=== PATIENT | female | born 1970 | race Caucasian/White ===

== ENCOUNTER 2020-01-30 11:06 | Emergency (ER) | payer OTHER ==
[2020-01-30] MEDS ORDERED: Bupivacaine 0.5% 10 ML SDV INJECT ONE (11:27)
--- NOTE | 2020-01-30 11:32 | EDM.PDOC ---
ED HPI GENERAL MEDICAL PROBLEM - General Chief Complaint: Laceration Stated Complaint: LT THUMB LAC Time Seen by Provider: 01/30/20 11:27 Source of Information: Reports: Patient, Family (friend) History Limitations: Reports: No Limitations - History of Present Illness INITIAL COMMENTS - FREE TEXT/NARRATIVE: 50-year-old female presents to the ED with a laceration cross the volar aspect of the mid left thumb. Laceration appears to go across the PIP joint. She has full sensation to the tip of the finger. She appears to have full range of motion although it is painful. Last tetanus toxoid was greater than 5 years ago. Injury occurred approximately 1 hour prior to arrival in the ED. Injury occurred with the hook- knife blade. Patient is right-hand dominant. Onset: Today, Sudden Onset Date: 01/30/20 Onset Time: 10:30 Duration: Minutes: Location: Reports: Upper Extremity, Left (Left volar thumb.) Quality: Reports: Burning, Stabbing Severity: Moderate Improves with: Reports: Rest Worsens with: Reports: Movement Context: Denies: Activity, Exercise, Lifting, Trauma, Other Associated Symptoms: Reports: No Other Symptoms Treatments CLIENT SERVER DEVELOPER: Reports: Other (see below) (None.) Left Finger-Thumb Pain Score (Numeric/FACES): 3 - Related Data Allergies Allergy/AdvReac Type Severity Reaction Status Date / Time No Known Allergies Allergy Verified 01/30/20 11:33 Home Meds: Home Meds FLUoxetine HCl [Prozac] 20 mg PO DAILY 01/30/20 [History] buPROPion [Wellbutrin SR] 150 mg PO DAILY 01/30/20 [History] Past Medical History Psychiatric History: Reports: Anxiety, Depression Social & Family History - Living Situation & Occupation Occupation: Employed (Works as a physiotherapist.) ED ROS GENERAL - Review of Systems Review Of Systems: See Below Constitutional: Denies: Fever, Chills, Malaise, Weakness, Fatigue HEENT: Reports: No Symptoms Respiratory: Reports: No Symptoms Cardiovascular: Reports: No Symptoms Endocrine: Reports: No Symptoms GI/Abdominal: Reports: No Symptoms : Reports: No Symptoms Musculoskeletal: Reports: No Symptoms Skin: Reports: Other (Laceration volar aspect left thumb) Neurological: Reports: No Symptoms Psychiatric: Reports: No Symptoms Hematologic/Lymphatic: Reports: No Symptoms ED EXAM, SKIN/RASH Exam: See Below Exam Limited By: No Limitations General Appearance: Alert, WD/WN, Anxious (Very anxious.), Moderate Distress Extremities: Other (1.5 cm laceration volar aspect left thumb that crosses the DIP joint. Range of motion appears to be close to normal. She is able to resist forced extension of a flexed thumb at the DIP joint. Suggesting the tendon is intact. She has normal sensation to the tip of the thumb.) Psychiatric: Anxious Skin: Warm, Dry, Intact, Normal Color, No Rash Location, Skin: Lower Extremity, Left (Left volar thumb.) ED SKIN PROCEDURES - Laceration/Wound Repair Left Lower Digit - 1st (Thumb) Appearance: Subcutaneous Anesthetic Type: Local Local Anesthesia - Bupivicaine (Marcaine): 0.5% Plain Local Anesthetic Volume: Other (9) Skin Prep: Chlorhexidine (Hibiciens) Exploration/Debridement/Repair: Wound Explored Closed with: Sutures Lac/Wound length In cm: 2.5 Suture Size: 3-0 # of Sutures: 8 Suture Type: Nylon, Interrupted, Simple Suture Size: 3-0 Course - Vital Signs Last Recorded V/S: Last Vital Signs Temp 36.8 C 01/30/20 11:26 Pulse 74 01/30/20 11:26 Resp 20 01/30/20 11:26 BP 136/76 01/30/20 11:26 Pulse Ox 98 01/30/20 11:26 - Orders/Labs/Meds Meds: Medications Discontinued Medications Generic Name Dose Route Start Last Admin Trade Name Freq PRN Reason Stop Dose Admin Bupivacaine HCl 10 ml 01/30/20 11:27 Sensorcaine-Mpf 0.5% INJECT 01/30/20 11:28 ONETIME ONE - Radiology Interpretation Free Text/Narrative:: 50-year-old female presents to the ED with a laceration to the volar aspect of her left thumb across the PIP joint. This occurred approximately an hour prior to arrival in the ED. She was using a hook knife blade to open up a bale of fencing wire and slipped with a resultant laceration across the volar aspect of her left thumb. No other injuries are apparent. She believes her tetanus toxoid is up-to-date somewhere between 10 and 5 years ago. It is a low risk wound as the fencing material was brand-new and is a brand-new blade. Wound will require laceration repair. Plan wound soak for 5 minutes then anesthetized with bupivacaine 0.5% and closed with 3-0 nylon. - Re-Assessments/Exams Free Text/Narrative Re-Assessment/Exam: 01/30/20 12:25 laceration repaired under local anesthetic using 4-0 nylon times 8 sutures in total. Wound was explored and no evidence of tendon injury identified. She will daily cleanse the wound with soap and water and then apply topical antibiotic ointment such as bacitracin or Polysporin and cover with a bandage to keep clean. Sutures will need to be removed in 10 days time Departure - Departure Time of Disposition: 12:06 Disposition: Home, Self-Care 01 Condition: Fair Clinical Impression: Laceration of left thumb with complication Qualifiers: Encounter type: initial encounter Qualified Code(s): S61.012A - Laceration without foreign body of left thumb without damage to nail, initial encounter - Discharge Information *PRESCRIPTION DRUG MONITORING PROGRAM REVIEWED*: Not Applicable Instructions: Laceration Care, Adult Referrals: Ching Bhat MD [Primary Care Provider] - Forms: ED Department Discharge Additional Instructions: Evaluation in the emergency room this morning in regard laceration to the volar aspect as well as the radial aspect of the dorsal thumb on the left side. This occurred from slipping with a sharp pointed knife. Tendon appears to be intact. Sensation normal. Wound was cleansed debrided and then sutured under local anesthetic using 0.5% bupivacaine times 8 sutures. Initial dressing is to remain in place until tomorrow night. Wound may then be cleansed daily with soap and water. Showering is okay. The wound should not be soaked under water however. Apply topical antibiotic such as bacitracin or Polysporin once daily to the wound and cover with a bandage to keep clean. Sutures will need to be removed in 10 days time. Follow-up with personal care physician if any signs of infection occur such as increased redness, swelling, obvious pus. Return 600 mg as necessary 6 hours needed for pain relief. Sepsis Event Note (ED) - Focused Exam Vital Signs: Vital Signs Temp Pulse Resp BP Pulse Ox 01/30/20 11:26 36.8 C 74 20 136/76 98
[2020-01-30] MEDS ORDERED: Diphtheria,Pertussis(Acell),Tetanus Vaccine 0.5 ML Syringe IM ONE (12:25)
== END 2020-01-30 12:45 | disposition home or self-care (01) ==
LOC: JD.ED 11:06
DX: S61.012A Laceration without foreign body of left thumb without damage to nail, initial encounter (principal); F32.9 Major depressive disorder, single episode, unspecified; F41.9 Anxiety disorder, unspecified; Z79.899 Other long term (current) drug therapy; Z23 Encounter for immunization; W26.0XXA Contact with knife, initial encounter
CPT/HCPCS: 12001; 90471; 90715; 99282; J3490